=== PATIENT | female | born 1970 | race American Indian/Alaskan Native ===

== ENCOUNTER 2018-11-18 15:12 | Emergency (ER) | payer OTHER ==
--- NOTE | 2018-11-18 15:23 | Event Note ---
ED Screening Note Date of service: 11/18/18 Time: 15:21 ED Screening Note: 48 y/o female comes in for right hip pain s/p fall today at work. She landed on her back and did a split. This initial assessment/diagnostic orders/clinical plan/treatment(s) is/are subject to change based on patients health status, clinical progression and re- assessment by fellow clinical providers in the ED. Further treatment and workup at subsequent clinical providers discretion. Patient/guardian urged not to elope from the ED as their condition may be serious if not clinically assessed and managed. Initial orders include:
--- NOTE | 2018-11-18 16:07 | Emergency Department Report ---
ED Fall HPI - General Chief Complaint: Fall Stated Complaint: RT HIP INJURY Time Seen by Provider: 11/18/18 15:20 Source: patient Mode of arrival: Ambulatory - History of Present Illness Initial Comments: Mrs. Mason is a 48-year-old female employee here at [facility]. She incurred a workplace injury. In the procedure room, she slipped on the mat overlying wet surface. Her right leg slipped forward. She consequently has right back pain radiating to the right hip. She stated that she did the "splits". 10/10 pain when she sits still. The injury become stiff. When she walks around the pain improves. MD Complaint: fall -: Sudden, This afternoon Fall From: standing When Fall Occurred: [address] [employer] [address] Fall Occurred: work Loss of Consciousness: none Prolonged Down Time?: no Symptoms Prior to Fall: none Location: back, buttocks Severity: severe Severity scale (0 -10): 10 Quality: aching Context: tripped/slipped Associated Symptoms: denies - Related Data Home Medications Medication Instructions Recorded Confirmed Last Taken Esomeprazole Magnesium [NexIUM] 40 mg PO QDAY 12/25/12 06/11/13 06/12/13 Montelukast [Singulair] 10 mg PO DAILY 12/25/12 06/11/13 06/10/13 Olmesartan/Hydrochlorothiazide 1 tab PO QDAY 12/25/12 06/11/13 06/11/13 08:48 [Benicar HCT 20-12.5 mg] Sennosides/Docusate Sodium [Stool 1 cap PO PRN 12/25/12 06/11/13 12/24/12 Softener-Stim Lax Tablet] diphenhydrAMINE [Benadryl CAP] 1 tab PO PRN 12/25/12 06/11/13 12/24/12 Esomeprazole Magnesium [Nexium] 40 mg PO DAILY 05/12/13 06/11/13 06/12/13 Montelukast [Singulair] 10 mg PO DAILY 05/12/13 06/11/13 06/10/13 Olmesartan/Hydrochlorothiazide 20 mg PO DAILY 05/12/13 06/11/13 06/11/13 [Benicar HCT 20-12.5 mg] Rizatriptan Benzoate [Maxalt] 10 mg PO PRN 05/12/13 06/11/13 05/12/13 14:35 Previous Rx's Medication Instructions Recorded Last Taken Type Cyclobenzaprine [Flexeril 10 MG 10 mg PO Q8H PRN #90 tablet 12/30/12 Unknown Rx TAB] Gabapentin [Neurontin] 300 mg PO BID #60 capsule 12/30/12 Unknown Rx traMADol [Ultram 50 MG tab] 50 mg PO Q8HR PRN #30 tablet 12/30/12 Unknown Rx Cyclobenzaprine [Flexeril] 10 mg PO TID PRN #20 tablet 11/18/18 Unknown Rx HYDROcodone/APAP 5-325 [[place] 1 each PO Q6HR PRN #10 tablet 11/18/18 Unknown Rx 5/325] Ibuprofen [Motrin 800 MG tab] 800 mg PO Q8HR PRN #15 tablet 11/18/18 Unknown Rx Allergies Allergy/AdvReac Type Severity Reaction Status Date / Time No Known Allergies Allergy Verified 05/12/13 14:30 ED Review of Systems ROS: Stated complaint: RT HIP INJURY Other details as noted in HPI Constitutional: denies: fever, malaise Musculoskeletal: back pain, joint swelling, arthralgia Neurological: denies: numbness, paresthesias ED Past Medical Hx - Past Medical History Previous Medical History?: Yes Hx Hypertension: Yes Hx Congestive Heart Failure: No Hx Diabetes: No Hx GERD: Yes Hx Asthma: No Hx COPD: No - Surgical History Past Surgical History?: Yes Hx Cholecystectomy: Yes Additional Surgical History: back x2,hysterectomy, T&A - Social History Smoking Status: Never Smoker Substance Use Type: None - Medications Home Medications: Home Medications Medication Instructions Recorded Confirmed Last Taken Type Esomeprazole Magnesium [NexIUM] 40 mg PO QDAY 12/25/12 06/11/13 06/12/13 History Montelukast [Singulair] 10 mg PO DAILY 12/25/12 06/11/13 06/10/13 History Olmesartan/Hydrochlorothiazide 1 tab PO QDAY 12/25/12 06/11/13 06/11/13 08:48 History [Benicar HCT 20-12.5 mg] Sennosides/Docusate Sodium [Stool 1 cap PO PRN 12/25/12 06/11/13 12/24/12 History Softener-Stim Lax Tablet] diphenhydrAMINE [Benadryl CAP] 1 tab PO PRN 12/25/12 06/11/13 12/24/12 History Cyclobenzaprine [Flexeril 10 MG 10 mg PO Q8H PRN #90 tablet 12/30/12 06/11/13 Unknown Rx TAB] Gabapentin [Neurontin] 300 mg PO BID #60 capsule 12/30/12 06/11/13 Unknown Rx traMADol [Ultram 50 MG tab] 50 mg PO Q8HR PRN #30 tablet 12/30/12 06/11/13 Unknown Rx Esomeprazole Magnesium [Nexium] 40 mg PO DAILY 05/12/13 06/11/13 06/12/13 History Montelukast [Singulair] 10 mg PO DAILY 05/12/13 06/11/13 06/10/13 History Olmesartan/Hydrochlorothiazide 20 mg PO DAILY 05/12/13 06/11/13 06/11/13 History [Benicar HCT 20-12.5 mg] Rizatriptan Benzoate [Maxalt] 10 mg PO PRN 05/12/13 06/11/13 05/12/13 14:35 History Cyclobenzaprine [Flexeril] 10 mg PO TID PRN #20 tablet 11/18/18 Unknown Rx HYDROcodone/APAP 5-325 [[place] 1 each PO Q6HR PRN #10 tablet 11/18/18 Unknown Rx 5/325] Ibuprofen [Motrin 800 MG tab] 800 mg PO Q8HR PRN #15 tablet 11/18/18 Unknown Rx ED Physical Exam - General Limitations: No Limitations General appearance: alert, in no apparent distress - Head Head exam: Present: atraumatic, normocephalic - Eye Eye exam: Absent: scleral icterus, conjunctival injection - ENT ENT exam: Present: mucous membranes moist - Neck Neck exam: Present: normal inspection, full ROM - Respiratory Respiratory exam: Absent: respiratory distress - Expanded Lower Extremity Exam Left Hip exam: Present: normal inspection, full ROM. Absent: tenderness, swelling, abrasion Upper Leg exam: Present: normal inspection, full ROM Knee exam: Present: normal inspection, full ROM - Back Exam Back exam: Present: tenderness, CVA tenderness (R), muscle spasm, paraspinal tenderness. Absent: CVA tenderness (L) - Neurological Exam Neurological exam: Present: alert, oriented X3 - Psychiatric Psychiatric exam: Present: normal affect, normal mood ED Course Vital Signs 11/18/18 15:21 Temperature 97.6 F Pulse Rate 76 Respiratory 18 Rate Blood Pressure 134/83 O2 Sat by Pulse 99 Oximetry ED Medical Decision Making - Radiology Data Radiology results: image reviewed Right hip radiographs according to my interpretation without fracture or s ubluxation - Medical Decision Making Right lower back strain right hip strain Radiographs without fracture or dislocation according to my interpretation. Prescribed [place] ibuprofen and Flexeril and referred to orthopedic surgeon Critical care attestation.: If time is entered above; I have spent that time in minutes in the direct care of this critically ill patient, excluding procedure time. ED Disposition Clinical Impression: Strain of tendon of lower back, Strain of right hip, Fall Disposition: TO HOME OR SELFCARE Is pt being admited?: No Does the pt Need Aspirin: No Condition: Stable Instructions: Low Back Strain (ED), Muscle Strain (ED) Prescriptions: Cyclobenzaprine [Flexeril] 10 mg PO TID PRN #20 tablet PRN Reason: Muscle Spasm Ibuprofen [Motrin 800 MG tab] 800 mg PO Q8HR PRN #15 tablet PRN Reason: Pain , Severe (7-10) HYDROcodone/APAP 5-325 [[place] 5/325] 1 each PO Q6HR PRN #10 tablet PRN Reason: Pain Referrals: SETH SALVADOR MD [Staff Physician] - 3-5 Days Forms: Work/School Release Form(ED)
[2018-11-18 16:14] VITALS: BP 130/81
--- NOTE | 2018-11-18 16:27 | XRay Report ---
RIGHT HIP, 2 VIEWS INDICATION: right hip pain s/p fall.. COMPARISON: None. IMPRESSION: No acute osseous or soft tissue abnormality. No significant DJD. Surgical changes in the lower lumbar spine are partially imaged, correlate with history. Signer Name: Romaine Hsu Jr, MD Signed: 11/18/2018 4:22 PM Workstation Name: [id number]
== END 2018-11-18 16:13 | disposition home or self-care (01) ==
LOC: ED 15:12
DX: S39.012A Strain of muscle, fascia and tendon of lower back, initial encounter (principal); S76.011A Strain of muscle, fascia and tendon of right hip, initial encounter; I10 Essential (primary) hypertension; K21.9 Gastro-esophageal reflux disease without esophagitis; Z90.710 Acquired absence of both cervix and uterus; Z90.49 Acquired absence of other specified parts of digestive tract; Z79.899 Other long term (current) drug therapy; W01.0XXA Fall on same level from slipping, tripping and stumbling without subsequent striking against object, initial encounter; Y93.01 Activity, walking, marching and hiking; Y92.239 Unspecified place in hospital as the place of occurrence of the external cause; Y99.0 Civilian activity done for income or pay

== ENCOUNTER 2019-01-16 07:20 | Outpatient (CLI) | payer OTHER ==
--- NOTE | 2019-01-16 13:54 | Magnetic Resonance Report ---
MRI LUMBAR SPINE WITHOUT CONTRAST INDICATION / CLINICAL INFORMATION: M54.5 LOW BACK PAIN/M54.31 SCIATICA RIGHT SIDE. TECHNIQUE: Multisequence, multiplanar images of the lumbar spine were obtained. 15 cc of MultiHance was administ ered intravenously for postcontrast images. COMPARISON: No relevant comparison. FINDINGS: Previous anterior and posterior fusion changes at L5-S1 generate artifact. ALIGNMENT: Normal lumbar lordosis without significant scoliosis. VERTEBRAE:Normal marrow signal and vertebral body height for age. DISC SPACES: Disc desiccation is noted at L3-4, L4-5 and L5-S1. Moderate disc space narrowing at L3-4 . FACET JOINTS: Minimal to mild arthritic changes. No hypertrophic changes. There is a small amount of fluid throughout the facet joints bilaterally. VISUALIZED SPINAL CORD: No significant abnormality. The conus terminates at the L1 level. No central canal stenosis. [id number] ANALYSIS: L1-2: No significant abnormality. L2-3: No significant abnormality. L3-4: Disc desiccation and narrowing is again noted. A moderate size central disc protrusion is ident ified which displaces the anterior thecal sac. This protrusion measures 8 mm transverse and 4 mm AP. No obvious mass effect on nerve roots there also appears to be mild right lateral bulging of the disc resulting in moderate right neural foraminal narrowing estimated at 50-75%.. L4-5: No significant abnormality. L5-S1: No significant abnormality. Fusion changes generate mild artifact but no obvious abnormality. PARASPINAL SOFT TISSUES: No significant abnormality. No abnormal enhancement is identified following IV gadolinium. IMPRESSION: Stable appearance of the fusion changes at L5-S1. Midline disc protrusion at L3-4 with no significant mass effect. Mild lateral bulging disc at L3-4 resulting in moderate right neural foraminal narrowing estimated at 50-75%. Degenerative findings as described. Signer Name: Romaine Hsu Jr, MD Signed: 01/16/2019 1:49 PM Workstation Name: [id number]
== END 2019-01-16 07:21 | disposition home or self-care (01) ==
LOC: MRI 07:20
PROVIDERS: ATTEND Orthopaedic Surgery
DX: M48.061 Spinal stenosis, lumbar region without neurogenic claudication (principal); M47.816 Spondylosis without myelopathy or radiculopathy, lumbar region; M40.46 Postural lordosis, lumbar region; M54.31 Sciatica, right side; M51.26 Other intervertebral disc displacement, lumbar region; M43.26 Fusion of spine, lumbar region; I10 Essential (primary) hypertension; K21.9 Gastro-esophageal reflux disease without esophagitis; Z90.49 Acquired absence of other specified parts of digestive tract; Z90.710 Acquired absence of both cervix and uterus
CPT/HCPCS: 72158; A9577

== ENCOUNTER 2019-01-17 10:45 | Outpatient (CLI) | payer BC, OTHER ==
--- NOTE | 2019-01-17 15:48 | Mammography Report ---
DIGITAL SCREENING MAMMOGRAM WITH CAD, 01/17/2019 INDICATION: Routine screening mammography. TECHNIQUE: Digital bilateral 2D mammography was obtained in the craniocaudal and mediolateral obliq ue projections. This examination was interpreted with the benefit of Computer-Aided Detection analysi s. COMPARISON: 01/19/2014 FINDINGS: Breast Density: There are scattered areas of fibroglandular density. There is no evidence of dominant mass, suspicious calcifications or architectural distortion in eithe r breast. A right upper inner parenchymal asymmetry with architectural distortion is less prominent t vora on the previous exam. IMPRESSION: No mammographic evidence of malignancy. Follow up recommendation: Routine yearly BI-RADS Category 2: Benign. A "normal" or negative report should not discourage follow up or biopsy of a clinically significant f inding. A written summary of these findings will be mailed to the patient. The patient will be entered into a mammography reporting system which will generate a reminder letter for the patient's next appointmen t at the appropriate interval. The [employer] recommends yearly mammograms starting at age 40 and continuing as l ortiz as a woman is in good health. Breast MRI is recommended for women with an approximate 20-25% or greater lifetime risk of breast cancer, including women with a strong family history of breast or ova yamel cancer or who have been treated for Hodgkin's disease. Signer Name: Brendon Kunz MD Signed: 01/17/2019 3:43 PM Workstation Name: [id number]
== END 2019-01-17 10:46 | disposition home or self-care (01) ==
LOC: MAMMO 10:45
PROVIDERS: ATTEND Internal Medicine
DX: Z12.31 Encounter for screening mammogram for malignant neoplasm of breast (principal); I10 Essential (primary) hypertension; K21.9 Gastro-esophageal reflux disease without esophagitis; Z72.89 Other problems related to lifestyle; Z90.710 Acquired absence of both cervix and uterus; Z90.721 Acquired absence of ovaries, unilateral; Z90.49 Acquired absence of other specified parts of digestive tract; Z83.3 Family history of diabetes mellitus; Z83.79 Family history of other diseases of the digestive system
CPT/HCPCS: 77067

== ENCOUNTER 2020-04-16 10:21 | Outpatient (CLI) | payer OTHER ==
--- NOTE | 2020-04-16 13:07 | Magnetic Resonance Report ---
MRI LUMBAR SPINE WITHOUT CONTRAST INDICATION / CLINICAL INFORMATION: LOWER BACK PAIN. TECHNIQUE: Multisequence, multiplanar images of the lumbar spine were obtained. COMPARISON: MR scan of the lumbar spine from 01/16/2019 FINDINGS: Last disc space considered to be L5-S1; anterior and posterior lumbar interbody fusion at L5-S1 level ALIGNMENT: Normal lumbar lordosis without significant scoliosis. VERTEBRAE:Normal marrow signal and vertebral body height for age. VISUALIZED SPINAL CORD: No significant abnormality. Conus ends at T12-L1 disc level [id number] ANALYSIS: T10-T11: Mild disc height loss; neuroforamina are normal T11-T12 and T12-L1: Normal L1-2: No significant abnormality. L2-3: Shallow bulging disc since the last MRI scan; neuroforamina are normal L3-4: Previously seen midline disc protrusion extending towards the right side has decreased; however , right neuroforamen is still stenotic L4-5: Mild to moderate facet joint hypertrophic changes; neuroforamina are normal; disc profile indio l L5-S1: Anterior and posterior lumbar interbody fusion; disc spacer optimally recessed; pedicle screws on the right side; laminectomy changes on the right side; neuroforamina are normal; these findings r emain unchanged PARASPINAL SOFT TISSUES: No significant abnormality. ADDITIONAL FINDINGS: None. IMPRESSION: Anterior and posterior lumbar interbody fusion at L5-S1 disc level; MR findings remain unchanged Previously seen midline disc protrusion at L3-L4 disc level extending towards the right neuroforamen has decreased Shallow bulging disc at L2-L3 disc level since the last MRI scan Signer Name: Tanvir Sarabia MD Signed: 04/16/2020 1:02 PM Workstation Name: [id number]
== END 2020-04-16 10:22 | disposition home or self-care (01) ==
LOC: MRI 10:21
PROVIDERS: ATTEND Internal Medicine
DX: M43.27 Fusion of spine, lumbosacral region (principal); M51.26 Other intervertebral disc displacement, lumbar region
CPT/HCPCS: 72148